=== PATIENT | female | born 1985 | race Hispanic/Latino ===

== ENCOUNTER 2018-04-03 14:36 | Emergency (ER) | payer SELFPAY ==
[2018-04-03 15:47] LABS: #Basophils 0.1 thou/uL (0.0-0.2); #Eosinphils 0.5 thou/uL (0.0-0.7); #Lymphocytes 2.6 thou/uL (1.20-3.40); #Monocytes 0.5 thou/uL (0.11-0.59); #Neutrophils 3.7 thou/uL (1.40-6.50); %Basophils 0.7 % (0.0-1.0); %Eosinophils 6.9 % (0.0-10.0); %Lymphocytes 35.6 % (21.0-51.0); %Monocytes 6.3 % (0.0-10.0); %Neutrophils 50.5 % (42.0-75.0); Hemoglobin 13.7 g/dL (12.0-16.0); Mean Corpuscular Volume 94.2 fl (81.0-99.0); Mean Platelet Volume 7.3 fL (7.4-10.4); Platelet Count 264 thou/uL (130-400); RBC Distribution Width 11.6 % (11.5-14.5); Red Blood Cell (RBC) Count 4.15 mill/uL (4.20-5.40); White Blood Cell (WBC) Count 7.4 thou/uL (4.8-10.8)
[2018-04-03] MEDS ORDERED: Acetaminophen 500 MG TAB ONE (16:56)
--- NOTE | 2018-04-03 19:15 | ULT ---
TRANSVAGINAL AND TRANSABDOMINAL PELVIC ULTRASOUND WITH LAIRD SCALE AND DOPPLER COLOR FLOW: INDICATIONS: Emergency exam. Low back and pelvic pain. FINDINGS: There is an irregular shaped focus of decreased echogenicity at the frontal aspect of the endometrial canal. This may relate to an abnormally shaped gestational sac versus a pseudo gestational sac. A live intrauterine gestation is not confirmed. pole and yolk sac are not seen. There is no fet al cardiac activity. Evaluation of each ovary with Doppler assessment reveals flow. There is prominence of and heterogene ity involving the endometrium. There is no significant free pelvis fluid. IMPRESSION: Focal region of decreased echogenicity of the endometrial canal, which may relate to an abnormally sh aped gestational sac. No viable intrauterine gestation is seen; therefore, the possibility of a pseu do gestational sac related to ectopic is not excluded. Recommend continued evaluation with serum beta hCG values, as well as follow-up imaging. Complex, thickened appearance of the endometrium. This may be reassessed at the time of short-term f ollowup. POS: [facility]
== END 2018-04-03 18:43 | disposition home or self-care (01) ==
LOC: ERS 14:36
DX: N93.9 Abnormal uterine and vaginal bleeding, unspecified (principal); E78.00 Pure hypercholesterolemia, unspecified
CPT/HCPCS: 36415; 76856; 84702; 85025; 86900; 86901

== ENCOUNTER 2018-04-05 08:35 | Emergency (ER) | payer SELFPAY ==
--- NOTE | 2018-04-05 10:14 | PDOC.EVN ---
Event Note - Event Note Event Note: @1010: Phone call with ED provider I received a phone call about 5 minutes ago regarding Ms Cox. She was seen in the ED 2 days ago for first trimester vag bleed. BHCG then was 96,000. Sono with complex endometrial tissue. BHCG today 126,000 with sono about the same. She is clinically stable and exam benign per provider. RH type is pos. HCT 39 I reviewed the case with the ED provider. This sounds like a possible molar gestation based on BHCG levels. I will send a referral to [facility] for eval and scheduling of outpatient D&C. No indication for emergent D&C through ED at this time. As part of possible molar work up, will request Chest Xray and CMP.
[2018-04-05 10:24] LABS: #Basophils 0.1 thou/uL (0.0-0.2); #Eosinphils 0.3 thou/uL (0.0-0.7); #Lymphocytes 2.5 thou/uL (1.20-3.40); #Monocytes 0.3 thou/uL (0.11-0.59); %Basophils 0.9 % (0.0-1.0); %Eosinophils 4.9 % (0.0-10.0); %Monocytes 4.6 % (0.0-10.0); %Neutrophils 49.6 % (42.0-75.0); Hemoglobin 13.3 g/dL (12.0-16.0); Mean Corpuscular HGB CONC 34.3 g/dL (32.0-36.0); Mean Corpuscular Hemoglobin 32.5 pg (27.0-31.0); Mean Corpuscular Volume 94.7 fl (81.0-99.0); Platelet Count 283 thou/uL (130-400); RBC Distribution Width 11.7 % (11.5-14.5); Red Blood Cell (RBC) Count 4.09 mill/uL (4.20-5.40); White Blood Cell (WBC) Count 6.1 thou/uL (4.8-10.8)
[2018-04-05 11:06] LABS: ALT (SGPT) 17 U/L (8-55); AST (SGOT) 17 U/L (5-34); Alkaline Phosphatase 65 U/L (40-150); Anion Gap 8 mmol/L (10-20); BUN (Urea Nitrogen) 6 mg/dL (7.0-18.7); Bilirubin, Total 0.5 mg/dL (0.2-1.2); Calc. Creatinine Clearance 0 mL/min (70-130); Calcium 9.2 mg/dL (7.8-10.44); Carbon Dioxide 24 mmol/L (22-29); Chloride 108 mmol/L (98-107); Estimated GFR-MDRD Greater than 90; Globulin 2.8 g/dL (2.4-3.5); Glucose 96 mg/dL (70-105); Potassium 3.7 mmol/L (3.5-5.1); Protein, Total 6.8 g/dL (6.0-8.3); Sodium 136 mmol/L (136-145)
--- NOTE | 2018-04-05 11:36 | ULT ---
PELVIC ULTRASOUND: TECHNIQUE: Endovaginal ultrasound of pelvis performed. INDICATION: Abdominal and pelvic pain. Positive home test. Vaginal bleeding. COMPARISON: Correlation is made to pelvic ultrasound of 04/03/18. Uterine side is mildly prominent measuring 11.0 x 6.0 x 5.8 cm. There is free fluid seen in the cul- de-sac. The endometrium is abnormal. The endometrium is echogenic and there is an irregularly-shaped collect ion of fluid or blood in the endometrial cavity. No evidence of viable IUP. The right ovary is identified and appears unremarkable with color Doppler and spectral analysis demon strating blood flow. The left ovary is not identified. IMPRESSION: Uterine size is mildly prominent. The endometrium is abnormal with increased echogenicity and an irr egularity shaped fluid or blood collection in the endometrial cavity. Considerations include abortio n in progress or retained products of gestation. Ectopic is not excluded, although not con firmed. POS: [facility]
--- NOTE | 2018-04-05 12:11 | RAD ---
PORTABLE CHEST: HISTORY: Preoperative evaluation. FINDINGS: The lung bashir are well aerated. A linear opacity in the right lung base, peripherally, is seen, po ssibly representing atelectasis, although streaky infiltrate is not excluded. The lungs are otherwise clear. The heart and mediastinum are unremarkable. IMPRESSION: Streaky atelectasis and/or infiltrate in the right lung base cannot be excluded. Recommend upright P A and lateral views for better evaluation of the chest. POS: [facility]
== END 2018-04-05 11:45 | disposition home or self-care (01) ==
LOC: ERS 08:35
DX: O20.9 Hemorrhage in early pregnancy, unspecified (principal); O99.89 Other specified diseases and conditions complicating pregnancy, childbirth and the puerperium; R10.9 Unspecified abdominal pain; O99.281 Endocrine, nutritional and metabolic diseases complicating pregnancy, first trimester; E78.00 Pure hypercholesterolemia, unspecified
CPT/HCPCS: 36415; 71045; 76856; 80053; 84702; 85025; 86900; 86901

== ENCOUNTER 2018-04-12 21:10 | Observation (INO) | payer OTHER, SELFPAY ==
[2018-04-12 21:33] LABS: #Basophils 0.1 thou/uL (0.0-0.2); #Eosinphils 0.4 thou/uL (0.0-0.7); #Lymphocytes 3.8 thou/uL (1.20-3.40); #Monocytes 0.5 thou/uL (0.11-0.59); #Neutrophils 7.1 thou/uL (1.40-6.50); %Basophils 1.1 % (0.0-1.0); %Eosinophils 3.2 % (0.0-10.0); %Monocytes 4.5 % (0.0-10.0); %Neutrophils 59.3 % (42.0-75.0); Hemoglobin 11.7 g/dL (12.0-16.0); Mean Corpuscular HGB CONC 35.6 g/dL (32.0-36.0); Mean Corpuscular Hemoglobin 33.1 pg (27.0-31.0); Mean Platelet Volume 6.8 fL (7.4-10.4); Platelet Count 281 thou/uL (130-400); RBC Distribution Width 11.6 % (11.5-14.5); Red Blood Cell (RBC) Count 3.53 mill/uL (4.20-5.40)
[2018-04-12] MEDS ORDERED: Morphine 4 MG/ML VIAL ONE ×2 (21:58→22:34)
[2018-04-12 22:36] LABS: Bilirubin Negative (Negative); Blood, Urine Large (Negative); Clarity CLOUDY (Clear); Glucose, Urine (Dipstick) Negative (Negative); Leukocyte Small (Negative); Nitrite Negative (Negative); Protein, Urine (Dipstick) 30 mg/dL (Neg-Trace); Specific Gravity, Urine 1.029 (1.002-1.036); Urobilinogen 0.2 mg/dL (0.2-1.0); pH, Urine 5.5 (5.0-9.0)
--- NOTE | 2018-04-12 22:36 | ULT ---
PELVIC ULTRASOUND: 04/12/18 HISTORY: Vaginal bleeding. Lower abdominal pain times several days. Very elevated quant of 123,000 two days ag o. Irregular ultrasound without IUP. Evaluate for ectopic versus molar . Today's HCG is 225, 000. COMPARISON: 04/05/18. TECHNIQUE: Transabdominal imaging of the pelvis is performed. Patient could not tolerate endovaginal imaging. O varies are interrogated with bang scale, color flow, doppler imaging and spectral waveform analysis. FINDINGS: The uterus is again identified. There is a mixed echotexture focus within the endometrium. A normal a ppearing gestational sac is difficult to appreciated. Endometrial diameter appears to be 3.3 mm. No e vidence of a gestational sac, yolk sac, or pole. The uterus measures 6.1 x 6.9 x 12.2 cm. Right and left ovaries have an overall normal echotexture. Right ovary measures 2.6 x 2.6 x 1.9 cm. L eft ovary measures 2.2 x 2.2 x 1.3 cm. There is a hypoechoic area in the right ovary measuring 1.2 x 0.7 x 1.4 cm which may represent a smal l cyst. No significant free fluid. OVARIAN DOPPLER: Vascular flow to both ovaries. IMPRESSION: Irregular heterogenous endometrium without definite evidence of a normal appearing gestational sac, y olk sac or pole. Differential considerations have not changed. Sonographic occult ectopic versu s molar . Follow up ultrasound, serial B-HCG and OB consultation. POS: [facility]
[2018-04-12 22:38] LABS: Bacteria/HPF None Seen HPF (None Seen); Pathc Cast-AUWi Flag 4.33 (0-2.49); RBC/HPF GREATER THAN 50-TNTC HPF (0-3)
[2018-04-12 22:40] LABS: Crystals/HPF None Seen HPF (Negative); Hyaline Casts/LPF 0-3 HYALINE CAST LPF (0-3 Hyaline); Yeast-All Forms None Seen HPF (None Seen)
[2018-04-12] MEDS ORDERED: Fentanyl 100 MCG/2 ML VIAL ONE (22:58)
[2018-04-12] MEDS ORDERED: HYDROmorphone 0.5 MG/0.5 ML SYRINGE ONE (23:54)
[2018-04-13] MEDS ORDERED: Fentanyl 100 MCG/2 ML VIAL ONE (00:02)
[2018-04-13] MEDS ORDERED: Misoprostol 200 MCG TAB ONE (00:04)
[2018-04-13] MEDS ORDERED: Oxytocin 10 UNITS/ML VIAL ONE (00:40)
[2018-04-13] MEDS ORDERED: Ondansetron HCl/PF 4 MG/2 ML Vial ONE (02:13)
[2018-04-13] MEDS ORDERED: Promethazine HCl 25 MG/ML VIAL ONE (02:22)
--- NOTE | 2018-04-13 03:19 | OP ---
DATE OF PROCEDURE: 04/13/2018 SURGEON: Guzman Feldman M.D. PREOPERATIVE DIAGNOSIS: Inevitable . POSTOPERATIVE DIAGNOSIS: Incomplete . PROCEDURE: Suction curettage of the uterus. ESTIMATED BLOOD LOSS: 400 mL. COMPLICATIONS: None. TECHNIQUE IN DETAIL: The patient was taken to the operating room and general endotracheal anesthesia was achieved. The patient was prepped in the dorsal lithotomy position using the candy cane stirrup s. On exam, the patient had passed tissue through her cervix and into the vaginal vault. The patien t was prepped and draped in the usual sterile fashion and examination was performed. The cervix was widely open and a 12-mm curet was placed into the uterine cavity. Suction curettage was performed. There was a small amount of remaining tissue in the uterus. A sharp curet was then passed through al l quadrants of the uterus and no remaining placental fragments were obtained. Pitocin infusion was b egun and the uterus began to involute quickly and bleeding was minimal after that point. The tissue was labeled for pathology. All instruments were then removed from the vagina. Instrument and sponge counts were correct. The patient was awakened and taken to the recovery room in good condition. Of note, the patient's blood type is Rh positive.
--- NOTE | 2018-04-13 03:25 | PDOC.EVN ---
Event Note - Event Note Event Note: Call from RR. Pt remains sleepy. O2 sats stable. To floor for Extended Recovery.
[2018-04-13] MEDS ORDERED: Promethazine HCl 25 MG/ML VIAL SLOW IVP PRN (03:48)
[2018-04-13] MEDS ORDERED: Ibuprofen 800 MG TAB PO PRN (03:48)
--- NOTE | 2018-04-13 08:00 | HP ---
DATE OF ADMISSION: 04/13/2018 ADMITTING PHYSICIAN: Guzman Feldman MD REGULAR PHYSICIAN: Melva Gonzalez DO CHIEF COMPLAINT: Pain with vaginal bleeding. HISTORY OF PRESENT ILLNESS: Ms. Valdez is a 32-year-old with a reported last menstrual period of the end of January who has been seen in the ER now 3 times with complaints of vaginal bleedi ng. She was seen by Dr. Gonzalez today at [facility] and was given a prescription for Cytotec in order to proceed with a medical D and C. Her ultrasound had shown no evidence of an intrauterine and apparently it was thought that she had a missed . She presents tonight after h aving taken a single dose of Cytotec, complaining of uncontrolled pain and vaginal bleeding. She den ies fever, chills, nausea, or vomiting. PAST OBSTETRICAL HISTORY: Remarkable for 4 sections. PAST MEDICAL HISTORY: Unremarkable. CURRENT MEDICATIONS: None other than the Cytotec mentioned above. PAST SURGICAL HISTORY: x4. ALLERGIES: No known allergies. SOCIAL HISTORY: She drinks occasionally. She does not smoke. PHYSICAL EXAMINATION: VITAL SIGNS: Blood pressure is 133/81, pulse is 82, respirations 20 with pulse oximetry 97%. GENERAL: The patient is uncomfortable and complaining of pain despite IV morphine given in the ER. CHEST: Clear to auscultation. CARDIOVASCULAR: Regular rate and rhythm. ABDOMEN: Soft and nontender. There is no distention. Pelvic exam shows the cervix to be open with tissue protruding. There is blood in the vault. On bimanual exam, her uterus is approximately 8-10 weeks in size. LABORATORY DATA: White count 12.0, hemoglobin and hematocrit 11.7 and 32.8, platelet count is 281,00 0. Quantitative beta hCG is 225,000 tonight and the ultrasound shows an irregular heterogeneous endo metrium with no IUP seen. Good flow is seen to both ovaries. ASSESSMENT: Inevitable . PLAN: At this time, due to the severe nature of the patient's pain, we will proceed to the OR for a suction D and C to remove the tissue from her cervix and from her uterus. I did obtain consent throu gh her family of which two of her children speak [place]. The risks of the procedure including anest hesia, bleeding, infection, as well as damage to adjacent organs, requiring repair, removal or transf usion was discussed with her in detail and she wishes to proceed.
[2018-04-13 08:36] LABS: #Basophils 0.1 thou/uL (0.0-0.2); #Eosinphils 0.1 thou/uL (0.0-0.7); #Lymphocytes 2.2 thou/uL (1.20-3.40); #Monocytes 0.4 thou/uL (0.11-0.59); #Neutrophils 6.6 thou/uL (1.40-6.50); %Basophils 0.6 % (0.0-1.0); %Lymphocytes 23.5 % (21.0-51.0); %Monocytes 4.3 % (0.0-10.0); %Neutrophils 70.8 % (42.0-75.0); Hemoglobin 9.2 g/dL (12.0-16.0); Mean Corpuscular HGB CONC 34.6 g/dL (32.0-36.0); Mean Corpuscular Hemoglobin 32.9 pg (27.0-31.0); Mean Corpuscular Volume 95.3 fl (81.0-99.0); Mean Platelet Volume 7.1 fL (7.4-10.4); Platelet Count 218 thou/uL (130-400); RBC Distribution Width 11.8 % (11.5-14.5); Red Blood Cell (RBC) Count 2.79 mill/uL (4.20-5.40); White Blood Cell (WBC) Count 9.3 thou/uL (4.8-10.8)
--- NOTE | 2018-04-13 08:37 | PRG ---
DATE OF SERVICE: 04/13/2018 HISTORY OF PRESENT ILLNESS: Postoperative day #0, status post suction, dilation and curettage for incomplete with concern for possible molar . SUBJECTIVE: The patient states that she has had minimal bleeding since her procedure. She does complain of generalized lower pelvic soreness. She denies any fevers, chills, nausea or vomiting. Her pain is better with oral medications. The patient does complain of coughing with scant hemoptysis this morning. OBJECTIVE: VITAL SIGNS: Her blood pressure is 90/56, pulse is 75, respiratory rate 17, oxygen saturation is 100% on room air, temperature is 98.5. CARDIOVASCULAR: Regular rate. RESPIRATORY: Unlabored. ABDOMEN: Soft. Mild tenderness in lower abdomen. EXTREMITIES: Negative Homans'. LABORATORY DATA: All pending this morning. We will perform a CBC, TSH, and a beta hCG. ASSESSMENT: Status post suction, dilation and curettage for incomplete with concern for possible molar . PLAN: We will complete a CBC, TSH, and beta hCG to complete laboratory workup. A chest x-ray ordered. Plan for discharge today after results with follow up in 1 week. [facility]
--- NOTE | 2018-04-13 08:38 | RAD ---
CHEST 1 VIEW: Data: 04/13/18 HISTORY: Molar . Preop. COMPARISON: 04/05/18. FINDINGS: Cardiac silhouette is unremarkable. Pulmonary vasculature is accentuated by shallow inspiration. Medi astinum is midline. No lobar consolidation or evidence of pneumothorax. IMPRESSION: No active cardiopulmonary abnormalities are demonstrated. POS: [facility]
[2018-04-13 09:11] LABS: Thyroid Stimulating Hormone 0.1847 uIU/mL (0.35-4.94)
[2018-04-13 09:25] LABS: HCG, Total Quant 98766.17 mIU/mL (See Ranges)
[2018-04-13 09:29] VITALS: TEMP 98.6
[2018-04-13 11:37] VITALS: BP 93/52
[2018-04-13 13:04] LABS: Free T4 (Free Thyroxine) 1.05 ng/dL (0.70-1.48)
[2018-04-13] MEDS: Sodium Chloride 0.9% 1,000 ML IV SCH (13:35)
[2018-04-13] MEDS ORDERED: PROPOFOL 200 MG/20 ML VIAL ONE (15:01)
[2018-04-13] MEDS ORDERED: PHENYLEPHRINE-NS 100 MCG/ML 10 ML SYRINGE ONE (15:01)
[2018-04-13] MEDS ORDERED: Succinylcholine Chloride 20 MG/ML 10 ml SYRINGE FS ONE (15:01)
[2018-04-13] MEDS ORDERED: Lidocaine 1% PF 5 ML VIAL ONE (15:01)
--- NOTE | 2018-04-14 02:58 | DIS ---
ADMISSION DIAGNOSIS: Incomplete . DISCHARGE DIAGNOSES: 1. Incomplete and anemia related to dilation and curettage. 2. Status post suction, dilation, and curettage. ADMISSION PHYSICIAN: Ismael Feldman MD DISCHARGING PHYSICIAN: Melva Gonzalez DO BRIEF HOSPITAL COURSE: Ms. Valdez is a 32-year-old female who presented with complaints of abdominal soreness and bleeding. The patient received pelvic ultrasound and beta hCG, which were suggestive of an incomplete and possible molar . She underwent a dilation and curettage without complication. The patient also had laboratory assessment postoperatively suggestive of acute blood loss anemia, however, stable for discharge today. FOLLOWUP: Follow up in 1 week. DIET: Regular. ACTIVITY: Pelvic rest x4 weeks. MEDICATIONS: Motrin 800 mg 1 tablet p.o. q.8 hours p.r.n. pain. MTDD
== END 2018-04-13 14:40 | disposition home or self-care (01) ==
LOC: ERS 21:10 → SDC 04-13 00:30 → 3SW 04-13 00:44
PROVIDERS: ADMIT Obstetrics & Gynecology; ATTEND Obstetrics & Gynecology
PROC: 10D17ZZ Extraction of Products of Conception, Retained, Via Natural or Artificial Opening (ICD-10-PCS; principal; 2018-04-13)
PROC: 3E033VJ Introduction of Other Hormone into Peripheral Vein, Percutaneous Approach (ICD-10-PCS; 2018-04-13)
DX: O03.1 Delayed or excessive hemorrhage following incomplete spontaneous abortion (principal); D64.9 Anemia, unspecified; Z98.891 History of uterine scar from previous surgery
CPT/HCPCS: 36415; 71045; 76856; 81003; 81015; 84439; 84443; 84481; 84702; 85025; 86850; 86900; 86901; 87077; 87086; 88305; 93976; 96361; 96372; 96374; 96375; G0378; J1170; J2001; J2270; J2405; J2550; J2590; J2704; J3010